=== PATIENT | female | born 1990 | race Caucasian/White ===

== ENCOUNTER 2023-10-28 09:37 | Day surgery (SDC) | payer BC ==
[2023-10-28] VITALS (11 sets, daily range): BP systolic 119–130; BP diastolic 66–83
[~2023-10-28] VITALS: Ht 167.6 cm; Wt 93.1 kg
[~2023-10-28 09:37] MED LIST: CODACE30 PO; CYCL10 PO; CeFAZolin Sodium 2,000 MG in NS 100 ML IV SCH; HYDACE5 PO; LEVSOD100 PO; Lactated Ringer's 1,000 ML IV SCH; METPHE27ER PO; MONO-LINYAH1 EACH PO
[2023-10-28] MEDS ORDERED: ONDA4 (10:02)
[2023-10-28] MEDS ORDERED: ZYRTEC10 M2 PO (10:02)
[2023-10-28] MEDS ORDERED: BUPR100ER PO (10:02)
[2023-10-28 10:38] LABS: BASOPHILS ABSOLUTE AUTO 0.02 K/mm3 (0.00-0.23); BASOPHILS PERCENT AUTO 0 % (0-2); EOSINOPHILS ABSOLUTE AUTO 0.06 K/mm3 (0.00-0.68); EOSINOPHILS PERCENT AUTO 1 % (0-6); Hematocrit 38.2 % (33.0-51.0); Hemoglobin 12.8 g/dL (11.5-16.0); IMMATURE GRAN ABSOLUTE AUTO 0.01 K/mm3 (0.00-0.10); IMMATURE GRAN PERCENT AUTO 0 % (0-1); LYMPHOCYTES PERCENT AUTO 31 % (21-46); MONOCYTES ABSOLUTE AUTO 0.26 K/mm3 (0.16-1.47); MONOCYTES PERCENT AUTO 6 % (4-13); Mean Corpuscular HGB 29.6 pg (26.0-34.0); Mean Corpuscular HGB Conc 33.5 g/dL (31.5-36.5); Mean Corpuscular Volume 88 fL (80-100); Mean Platelet Volume 9.2 fL (9.1-12.4); NEUTROPHILS ABSOLUTE AUTO 2.73 K/mm3 (1.96-9.15); NEUTROPHILS PERCENT AUTO 61 % (41-73); Platelet Count 216 K/mm3 (150-400); RDW Coefficient Variation 13.1 % (11.7-14.2); RDW Standard Deviation 42.9 fL (35.1-46.3); Red Blood Cell Count 4.32 M/mm3 (3.80-5.20); White Blood Cell Count 4.48 K/mm3 (4.00-11.30)
[2023-10-28] MEDS ORDERED: FentaNYL Citrate 50 MCG/ML 2 ML Injection ONE (11:36)
[2023-10-28] MEDS ORDERED: propofoL 20 ML IV ONE ×2 (11:37→11:50)
[2023-10-28] MEDS ORDERED: Ondansetron HCl 2 MG / ML 2ML Vial ONE ×2 (11:37→12:29)
[2023-10-28] MEDS ORDERED: Dexamethasone Sod Phos 10 MG/ML 1ML VIAL ONE (11:37)
[2023-10-28] MEDS ORDERED: Lidocaine HCl 2% 20 ML MDV ONE (11:38)
[2023-10-28] MEDS ORDERED: Methylergonovine Maleate 0.2MG / ML 1ML Amp ONE (11:41)
[2023-10-28] MEDS ORDERED: Ketorolac Tromethamine 30mg Vial ONE (12:21)
[2023-10-28] MEDS ORDERED: Metoclopramide HCl 5MG / ML 2ML Vial ONE (12:29)
[2023-10-28] MEDS ORDERED: OxyCODONE 5 mg/Acetamin 325 mg TABLET PO PRN (12:35)
--- NOTE | 2023-10-28 13:50 | NUR ---
Discharge instructions reviewed with patient. Patient verbalizes understanding. Copy given to patient to take home. 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 Patient States Post-Procedure ride home has been arranged. Discharged via wheelchair to private car for ride home.
== END 2023-10-28 13:40 | disposition home or self-care (01) ==
LOC: ORSCMMR 09:37 → ORD 11:45 → ORSCMMR 11:45
PROVIDERS: Family Medicine
PROC: 10D17ZZ Extraction of Products of Conception, Retained, Via Natural or Artificial Opening (ICD-10-PCS; principal; 2023-10-28 11:45)
DX: O02.1 Missed abortion (principal); F41.9 Anxiety disorder, unspecified; Z79.899 Other long term (current) drug therapy
CPT/HCPCS: 76998; 85025; 86850; 86900; 86901; 88305; 88342; 88374; A9270; J0690; J1100; J1885; J2210; J2405; J2704; J2765; J3010; J7120